=== PATIENT | male | born 1950 | race Caucasian/White ===

== ENCOUNTER 2018-10-08 17:01 | Observation (INO) | payer MEDICARE ==
[~2018-10-08] VITALS: Ht 177.8 cm; Wt 97.7 kg
[~2018-10-08 17:01] MED LIST: ANUSOL-HC25 MG RE; CIPRO250 MG OR; LORTAB5 OR
--- NOTE | 2018-10-08 17:01 | NUR ---
PATIENT ARRIVES TO ED VIA EMS. REPORTS [facility] GAVE PATIENT 324 MG OF ASPIRIN AND 1 SL NITRO. PATIENT DENIES ANY CHEST PAIN OR SOB.
--- NOTE | 2018-10-08 17:28 | NUR ---
PT STATES THAT HE FELT HIS HEART RACING YESTERDAY, STATES TAHT HE WENT TO THE DR TODAY TO BE CHECKED OUT AND WAS SENT TO THE ER. STAETS HAVING NO C/P,SOB. N/V OR WEAKNESS. PT IS AOX4.\ PT WAS GIVEN 0.4 MG NITRO, 324MG ASA PRIOR TO EMS ARRIVAL
[2018-10-08 17:49] LABS: HEMATOCRIT 45.4 % (39.0-50.0); HEMOGLOBIN 15.2 g/dl (14.0-18.0); IMMATURE GRANULOCYTES 0.2 % (0.0-5.0); MEAN CELL VOLUME 91.5 fL CALC (80.0-100.0); MEAN CORPUSCULAR HGB 30.6 pG CALC (26.0-32.0); MEAN CORPUSCULAR HGB CONC 33.5 g/L CALC (32.0-36.0); NEUT# 5.82 thou/uL (1.82-7.42); RED BLOOD COUNT 4.96 mill/uL (4.70-6.10); RED CELL DISTRI WIDTH 12.8 % (11.5-15.5)
[2018-10-08 18:00] LABS: ALBUMIN 4.4 g/dL (3.2-5.0); ALKALINE PHOSPHATASE 90 u/l (38-126); ANION GAP 16 (6-22 (CALC)); BILIRUBIN, TOTAL 0.5 mg/dL (0.0-1.4); BUN 15 mg/dL (8-23); BUN/CREATININE RATIO 14 (12-20 (CALC)); CARBON DIOXIDE 22 mmol/l (22-30); CHLORIDE 109 mmol/l (95-108); CREATININE 1.1 mg/dL (0.7-1.3); GFR > 60 ML/MIN (>=60 (CALC)); GFR FOR AFR.AMER. > 60 ML/MIN (>=60 (CALC)); POTASSIUM 4.4 mmol/l (3.5-5.1); SGOT/AST 30 u/l (19-48); SODIUM 143 mmol/l (137-146); TOTAL PROTEIN 7.6 g/dL (6.3-8.2)
--- NOTE | 2018-10-08 18:28 | NUR ---
PT AMBULATED TO RESTROOM WITH STEADY GAIT, NO COMPLAINTS AT THIS TIME.
[2018-10-08 18:30] LABS: TSH, 3RD GENERATION 0.97 uIU/mL (0.47 - 4.68)
--- NOTE | 2018-10-08 18:45 | NUR ---
MD AT BEDSIDE TO DISCUSS FINDINGS AND ADMISSION
--- NOTE | 2018-10-08 19:11 | NUR ---
PT INFORMED OF WAIT TIME FOR ADMISSION
--- NOTE | 2018-10-08 20:11 | NUR ---
PT RESTING ON STRETCHER, NO COMPLAINTS STATED AT THIS TIME
--- NOTE | 2018-10-08 21:30 | NUR ---
PT RESTING ON STRETCHER AWAITING ADMISSION
--- NOTE | 2018-10-08 21:34 | NUR ---
REPORT CALLED TO LISS SALINAS- ACCPETED PT
[2018-10-08 21:44] VITALS: BP 161/89
--- NOTE | 2018-10-08 21:45 | NUR ---
PT ARRIVED TO THE FLOOR VIA STRETCHER ACCOMPANIED BY ED NURSE. NO S/O DISTRESS NOTED. PT DENIES SOB, DIZZINESS,WEAKNESS,PAIN,N/V,SWEATS OR ANY OTHER SYMPTOMS. PT LOCX4. PT ORIENTED TO ROOM,LIGHTS,CALL SYSTEM. URINAL AT BESIDE. PT STATED THAT HE DID NOT NEED "FALL RISK" BAND BECAUSE HE HAS NOT BEEN DIZZY, WEAK OR FALLEN AT ANY POINT. SKIN IS INTACT, NEURO'S INTACT, LUNG SOUNDS CLEAR, HR REG. PT REPORTS EARLIER STOOL THIS DAY NORMAL. PT ENCOURAGED TO CALL IF ANY NEEDS ARISE. CALL LIGHT IS W/IN REACH. PT OFFERED SNACK/DRINK, DENIED NEED/PO WATER PROVIDED.
--- NOTE | 2018-10-08 21:49 | NUR ---
Admission Note Report Given to: LISS SALINAS Transported by: Wheelchair X Stretcher Transported with: X Nurse Transporter X Patent IV O2 X [employer] Ii Assembler [place]SP[place] [facility] [place]
[2018-10-08 23:50] VITALS: BP 135/78
--- NOTE | 2018-10-09 02:15 | NUR ---
PT SLEEPING NO S/O DISTRESS. CALL LIGHT AT SIDE.
[2018-10-09 03:38] VITALS: BP 122/73
--- NOTE | 2018-10-09 05:00 | NUR ---
PT SLEEPING NO S/O DISTRESS NOTED AT THIS TIME. CALL LIGHT AT BEDSIDE.
[2018-10-09 06:32] LABS: CHOLESTEROL HDL RATIO 5.7 (<4.4 (CALC))
--- NOTE | 2018-10-09 07:00 | NUR ---
PT REPORT RECIEVED FROM BRAD ALONSO. PT RESTING IN BED. NO S/S OF DISTRESS. CALL LIGHT IN REACH. WILL CONITNUE TO MONITOR.
[2018-10-09 08:03] VITALS: BP 148/76
--- NOTE | 2018-10-09 08:03 | NUR ---
PT A/O X3. SPEECH IS CLEAR. NO C/O CHEST PAIN AT THIS TIME. RESP EVEN AND UNLABORED. LUNG SOUNDS CLEAR. TELE IN PLACE. BOWEL SOUNDS ACTIVE X4. STRONG RADIAL AND PEDAL PULSES. #18 [facility] SITE SL. FLUSHED AND PATENT. SITE APPEARS HEALTHY. SKIN INTACT. PT DENIES ANY NEEDS AT THIS TIME. POC DISCUSSED. SAFETY PRECAUTIONS IN PLACE. CALL LIGHT IN REACH. WILL CONTINUE TO MONITOR.
[2018-10-09 11:30] VITALS: BP 144/77
--- NOTE | 2018-10-09 12:24 | NUR ---
PT RESTING IN BED. NO C/O PAIN OR NEEDS. TELE IN PLACE. CALL LIGHT IN REACH. WILL CONTINUE TO MONITOR.
--- NOTE | 2018-10-09 13:10 | NUR ---
DR. FENG IN TO SEE PT
[2018-10-09] MEDS ORDERED: METOPROLOL50 M1 PO (14:36)
--- NOTE | 2018-10-09 15:00 | NUR ---
D/C INSTRUCTIONS DISCUSSSED W/ PT. PT STATES UNDERSTANDING. TELE REMOVED. IV REMOVED. CATHETER INTACT. PT GETTING DRESSED AT THIS TIME.
--- NOTE | 2018-10-09 15:10 | NUR ---
Discharge instructions given. Patient verbalizes understanding of same. Discharged in stable condition via Ambulatory to Home with family. All belongings sent with pt.
== END 2018-10-09 15:11 | disposition home or self-care (01) ==
LOC: ED 17:01 → ED-I 18:30 → ED 19:01 → MS2 19:02
PROVIDERS: Emergency Medicine; ADMIT Internal Medicine; ATTEND Internal Medicine
DX: I10 Essential (primary) hypertension (principal); I49.3 Ventricular premature depolarization; R53.1 Weakness
CPT/HCPCS: G0378

== ENCOUNTER 2022-04-21 07:25 | Day surgery (SDC) | payer MEDICARE ==
[~2022-04-21] VITALS: Ht 177.8 cm; Wt 86.2 kg
[~2022-04-21 07:25] MED LIST changes: +LIPITOR20 M1 PO; +METFORMIN HCL500 M1 PO; +METOPROLOL SUCC50 MG PO; +METOPROLOL50 M1 PO
[2022-04-21 10:52] VITALS: BP 156/86
== END 2022-04-21 10:53 | disposition home or self-care (01) ==
LOC: ENDO 07:25 → ORM 09:40 → ENDO 10:53
PROVIDERS: ATTEND Surgery
PROC: 0DBN8ZX Excision of Sigmoid Colon, Via Natural or Artificial Opening Endoscopic, Diagnostic (ICD-10-PCS; principal; 2022-04-21)
DX: K57.31 Diverticulosis of large intestine without perforation or abscess with bleeding (principal); K63.89 Other specified diseases of intestine; K50.10 Crohn's disease of large intestine without complications; K64.8 Other hemorrhoids; I10 Essential (primary) hypertension; E11.9 Type 2 diabetes mellitus without complications; Z79.84 Long term (current) use of oral hypoglycemic drugs

== ENCOUNTER 2023-09-11 12:46 | Observation (INO) | payer MEDICARE ==
[~2023-09-11] VITALS: Ht 177.8 cm; Wt 87.8 kg
[2023-09-11] VITALS (13 sets, daily range): BP systolic 95–127; BP diastolic 55–75
[~2023-09-11 12:46] MED LIST changes: +MEDDOSEPAK PO
[2023-09-11 13:42] LABS: BASO% 0.1 % (0-3); EOS% 0.6 % (0-8); HEMATOCRIT 45.2 % (39.0-50.0); IMMATURE GRANULOCYTES 0.2 % (0.0-5.0); LYMPH% 11.6 % (15-41); MEAN CELL VOLUME 89.2 fL CALC (80.0-100.0); MEAN CORPUSCULAR HGB 29.6 pG CALC (26.0-32.0); MEAN CORPUSCULAR HGB CONC 33.2 g/dL CAL (32.0-36.0); MONO% 9.5 % (2-13); NEUT# 11.52 thou/uL (1.82-7.42); RED BLOOD COUNT 5.07 mill/uL (4.70-6.10); RED CELL DISTRI WIDTH 13.6 % (11.5-15.5)
[2023-09-11 13:45] LABS: ALBUMIN 3.9 g/dL (3.2-5.0); BILIRUBIN, TOTAL 0.6 mg/dL (0.2-1.3); POTASSIUM 3.9 mmol/l (3.5-5.1); TOTAL PROTEIN 7.4 g/dL (6.3-8.2)
[2023-09-11] MEDS ORDERED: SODIUM CHLORIDE 0.9% 1,000 ML IV ONE (13:45)
[2023-09-11 13:46] LABS: INTERNATIONAL NORMALIZED RATIO 1.1 RATIO (0.7-1.3); PROTHROMBIN TIME 10.8 SECONDS (9.0-12.5)
[2023-09-11 13:47] LABS: CREATININE 2.1 mg/dL (0.7-1.3)
[2023-09-11] MEDS ORDERED: MAGNESIUM HYDROXIDE 30 ML UDC PO PRN (15:40)
[2023-09-11] MEDS ORDERED: ACETAMINOPHEN 325 MG/TAB PO PRN (15:40)
[2023-09-11] MEDS ORDERED: SODIUM CHLORIDE 0.9% 1,000 ML IV PRN (15:45)
[2023-09-11] MEDS ORDERED: MORPHINE SULFATE 4 MG/ML VIAL IV PRN (16:30)
[2023-09-11] MEDS ORDERED: ONDANSETRON HCl 4 MG/2 ML SDV IV PRN (16:30)
[2023-09-11] MEDS ORDERED: hydrALAZINE HCL 20 MG/ML VIAL(1 ML) IV PRN (16:30)
[2023-09-11] MEDS ORDERED: INSULIN LISPRO 100 UNITS/ML ML SC SCH (17:00)
[2023-09-11] MEDS ORDERED: ATORVASTATIN CALCIUM 20 MG/TAB PO SCH (21:00)
[2023-09-12 05:15] VITALS: BP 106/60
[2023-09-12 05:36] LABS: BASO% 0.2 % (0-3); EOS% 1.7 % (0-8); IMMATURE GRANULOCYTES 0.3 % (0.0-5.0); LYMPH% 12.5 % (15-41); MEAN CELL VOLUME 89.3 fL CALC (80.0-100.0); MEAN CORPUSCULAR HGB 30.5 pG CALC (26.0-32.0); MEAN CORPUSCULAR HGB CONC 34.2 g/dL CAL (32.0-36.0); MONO% 10.8 % (2-13); NEUT# 6.97 thou/uL (1.82-7.42); NEUT% 74.5 % (42-76); RED BLOOD COUNT 4.19 mill/uL (4.70-6.10); RED CELL DISTRI WIDTH 13.7 % (11.5-15.5)
[2023-09-12 05:45] LABS: HEMATOCRIT 37.4 % (39.0-50.0); HEMOGLOBIN 12.8 g/dl (14.0-18.0)
[2023-09-12 05:54] LABS: BILIRUBIN, TOTAL 0.5 mg/dL (0.2-1.3); CHOLESTEROL HDL RATIO 3.1 (<4.4 (CALC)); CREATININE 1.5 mg/dL (0.7-1.3); MAGNESIUM 1.8 mg/dL (1.6-2.3); POTASSIUM 3.7 mmol/l (3.5-5.1)
[2023-09-12 06:11] LABS: ALBUMIN 2.9 g/dL (3.2-5.0); TOTAL PROTEIN 5.4 g/dL (6.3-8.2)
[2023-09-12 06:47] VITALS: BP 101/56
[2023-09-12] MEDS ORDERED: Pantoprazole Sodium 40 MG VIAL (Protonix) IV SCH (09:30)
[2023-09-12 10:00] VITALS: BP 99/56
[2023-09-12 14:51] VITALS: BP 107/56
[2023-09-12 18:54] VITALS: BP 113/69
[2023-09-13 03:58] VITALS: BP 105/51
[2023-09-13 06:17] LABS: BASO% 0.1 % (0-3); EOS% 1.7 % (0-8); HEMATOCRIT 34.5 % (39.0-50.0); HEMOGLOBIN 11.9 g/dl (14.0-18.0); IMMATURE GRANULOCYTES 0.1 % (0.0-5.0); LYMPH% 12.9 % (15-41); MEAN CELL VOLUME 89.1 fL CALC (80.0-100.0); MEAN CORPUSCULAR HGB 30.7 pG CALC (26.0-32.0); MEAN CORPUSCULAR HGB CONC 34.5 g/dL CAL (32.0-36.0); NEUT# 5.98 thou/uL (1.82-7.42); NEUT% 72.2 % (42-76); RED BLOOD COUNT 3.87 mill/uL (4.70-6.10); RED CELL DISTRI WIDTH 13.6 % (11.5-15.5)
[2023-09-13 06:30] LABS: ALBUMIN 2.6 g/dL (3.2-5.0); BILIRUBIN, TOTAL 0.4 mg/dL (0.2-1.3); CREATININE 1.4 mg/dL (0.7-1.3); MAGNESIUM 1.8 mg/dL (1.6-2.3); POTASSIUM 3.5 mmol/l (3.5-5.1)
[2023-09-13 07:20] VITALS: BP 99/52
[2023-09-13 08:10] VITALS: BP 99/52
[2023-09-13 11:16] VITALS: BP 111/71
[2023-09-13] MEDS ORDERED: metroNIDAZOLE 500 MG/TAB PO SCH (15:00)
[2023-09-13 16:10] VITALS: BP 104/50
[2023-09-13 19:23] VITALS: BP 117/47
[2023-09-13] MEDS ORDERED: FLUTICASONE PROPIONATE (Nasal) 50MCG/SPRAY INH SCH (20:30)
[2023-09-13] MEDS ORDERED: CIPROFLOXACIN HCL 500 MG/TAB PO SCH (21:00)
[2023-09-14 04:33] VITALS: BP 104/46
[2023-09-14 06:29] LABS: BASO% 0.1 % (0-3); EOS% 3.5 % (0-8); HEMATOCRIT 34.9 % (39.0-50.0); HEMOGLOBIN 11.9 g/dl (14.0-18.0); IMMATURE GRANULOCYTES 0.3 % (0.0-5.0); LYMPH% 19.6 % (15-41); MEAN CELL VOLUME 90.2 fL CALC (80.0-100.0); MEAN CORPUSCULAR HGB 30.7 pG CALC (26.0-32.0); MEAN CORPUSCULAR HGB CONC 34.1 g/dL CAL (32.0-36.0); MONO% 11.4 % (2-13); NEUT# 4.44 thou/uL (1.82-7.42); NEUT% 65.1 % (42-76); RED BLOOD COUNT 3.87 mill/uL (4.70-6.10); RED CELL DISTRI WIDTH 13.7 % (11.5-15.5)
[2023-09-14 06:48] VITALS: BP 106/56
[2023-09-14 06:49] LABS: ALBUMIN 2.6 g/dL (3.2-5.0); ALKALINE PHOSPHATASE 63 u/l (38-126); ANION GAP 8 (6-22 (CALC)); BILIRUBIN, TOTAL 0.4 mg/dL (0.2-1.3); BUN 13 mg/dL (8-23); BUN/CREATININE RATIO 11 (12-20 (CALC)); CARBON DIOXIDE 21 mmol/l (22-30); CHLORIDE 116 mmol/l (95-108); CREATININE 1.3 mg/dL (0.7-1.3); GFR FOR AFR.AMER. > 60 ML/MIN (>=60 (CALC)); GFR OTHER RACES 54 ML/MIN (>=60 (CALC)); MAGNESIUM 1.8 mg/dL (1.6-2.3); POTASSIUM 3.8 mmol/l (3.5-5.1); SGOT/AST 20 u/l (19-48); SODIUM 141 mmol/l (137-146); TOTAL PROTEIN 5.2 g/dL (6.3-8.2)
[2023-09-14] MEDS ORDERED: LISINOPRIL5 MG PO (12:29)
[2023-09-14] MEDS ORDERED: LISINOPRIL10 MG PO (12:29)
[2023-09-14] MEDS ORDERED: CIPROFLOXACN500 MG PO (12:30)
[2023-09-14] MEDS ORDERED: METRONIDAZOLE500 MG PO (12:30)
== END 2023-09-14 13:53 | disposition home or self-care (01) ==
LOC: ED 12:46 → ED-I 15:09 → ED 15:30 → ED-I 15:31 → MS2 16:34
PROVIDERS: Family Medicine; Nurse Practitioner Family; ADMIT Student in an Organized Health Care Education/Training Program; ATTEND Student in an Organized Health Care Education/Training Program
DX: K55.039 Acute (reversible) ischemia of large intestine, extent unspecified (principal); K92.1 Melena; N17.9 Acute kidney failure, unspecified; I49.3 Ventricular premature depolarization; I10 Essential (primary) hypertension; E11.9 Type 2 diabetes mellitus without complications; Z87.442 Personal history of urinary calculi; Z79.84 Long term (current) use of oral hypoglycemic drugs
CPT/HCPCS: S0164

== ENCOUNTER 2024-05-12 13:26 | Inpatient (IN) | payer MEDICARE ==
[~2024-05-12] VITALS: Ht 177.8 cm; Wt 85.6 kg
[2024-05-12] VITALS (19 sets, daily range): BP systolic 95–125; BP diastolic 45–68
[~2024-05-12 13:26] MED LIST changes: +B-12100 MCG PO; +CIPROFLOXACN500 MG PO; +LISINOPRIL10 MG PO; +LISINOPRIL5 MG PO; +METRONIDAZOLE500 MG PO; +MULTI VITAMIN1 TAB PO; +PREDNISONE10 MG PO; +PROTONIX40 M2 PO; +VITAMIN D PO; +[UNRECOGNIZED DRUG - OTHER]
[2024-05-12 13:57] LABS: BASO% 0.2 % (0-3); EOS% 0.5 % (0-8); HEMATOCRIT 41.9 % (39.0-50.0); HEMOGLOBIN 14.3 g/dl (14.0-18.0); IMMATURE GRANULOCYTES 0.4 % (0.0-5.0); LYMPH% 7.8 % (15-41); MEAN CELL VOLUME 89.5 fL CALC (80.0-100.0); MEAN CORPUSCULAR HGB 30.6 pG CALC (26.0-32.0); MEAN CORPUSCULAR HGB CONC 34.1 g/dL CAL (32.0-36.0); MONO% 7.9 % (2-13); NEUT# 12.4 thou/uL (1.82-7.42); NEUT% 83.2 % (42-76); RED BLOOD COUNT 4.68 mill/uL (4.70-6.10); RED CELL DISTRI WIDTH 13.2 % (11.5-15.5)
[2024-05-12] MEDS ORDERED: SODIUM CHLORIDE 0.9% 1,000 ML IV ONE (14:00)
[2024-05-12 14:11] LABS: CREATININE 2.2 mg/dL (0.7-1.3); POTASSIUM 4.3 mmol/l (3.5-5.1); TOTAL PROTEIN 7.3 g/dL (6.3-8.2)
[2024-05-12 14:16] LABS: ALBUMIN 4.2 g/dL (3.2-5.0); BILIRUBIN, TOTAL 0.6 mg/dL (0.2-1.3)
[2024-05-12] MEDS ORDERED: LANTUS SOL100 UNIT/M SC (15:53)
[2024-05-12] MEDS ORDERED: PIPERACILLIN Sodium-Tazobactam 3.375 GM in SODIUM CHLORIDE 0.9% 100 ML IV ONE (16:15)
[2024-05-12] MEDS ORDERED: methylPREDNISolone Sod Succ 40 MG/ML SDV IV SCH (16:24)
[2024-05-12] MEDS ORDERED: MAGNESIUM HYDROXIDE 30 ML UDC PO PRN (16:25)
[2024-05-12] MEDS ORDERED: SODIUM CHLORIDE 0.9% 1,000 ML IV PRN (16:25)
[2024-05-12] MEDS ORDERED: ACETAMINOPHEN 325 MG/TAB PO PRN (16:25)
[2024-05-12] MEDS ORDERED: MORPHINE SULFATE 4 MG/ML VIAL IV PRN (16:30)
[2024-05-12] MEDS ORDERED: ONDANSETRON HCl 4 MG/2 ML SDV IV PRN (16:30)
[2024-05-12] MEDS ORDERED: Pantoprazole Sodium 40 MG VIAL (Protonix) IV SCH (16:35)
[2024-05-12] MEDS ORDERED: INSULIN LISPRO 100 UNITS/ML ML SC SCH (17:00)
[2024-05-12] MEDS ORDERED: Ciprofloxacin 200 mg Premix 200 ML IV SCH (18:00)
[2024-05-13] VITALS (9 sets, daily range): BP systolic 85–110; BP diastolic 43–62
[2024-05-13 04:56] LABS: IMMATURE GRANULOCYTES 0.2 % (0.0-5.0); LYMPH% 9.7 % (15-41); MEAN CORPUSCULAR HGB 30.6 pG CALC (26.0-32.0); MEAN CORPUSCULAR HGB CONC 32.9 g/dL CAL (32.0-36.0); MONO% 3.5 % (2-13); NEUT# 8.43 thou/uL (1.82-7.42); NEUT% 86.6 % (42-76); RED BLOOD COUNT 3.86 mill/uL (4.70-6.10); RED CELL DISTRI WIDTH 13.4 % (11.5-15.5)
[2024-05-13 05:03] LABS: HEMATOCRIT 35.9 % (39.0-50.0); HEMOGLOBIN 11.8 g/dl (14.0-18.0)
[2024-05-13 05:15] LABS: BILIRUBIN, TOTAL 0.4 mg/dL (0.2-1.3); C-REACTIVE PROTEIN 2.9 mg/dL (0-0.9); CHOLESTEROL HDL RATIO 4.5 (<4.4 (CALC)); CREATININE 1.9 mg/dL (0.7-1.3); MAGNESIUM 2.1 mg/dL (1.6-2.3); POTASSIUM 4.6 mmol/l (3.5-5.1)
[2024-05-13 05:18] LABS: ALBUMIN 3.2 g/dL (3.2-5.0); TOTAL PROTEIN 5.8 g/dL (6.3-8.2)
[2024-05-13] MEDS ORDERED: INSULIN DETEMIR 100 UNITS/ML SC SCH (09:00)
[2024-05-14] VITALS (9 sets, daily range): BP systolic 95–118; BP diastolic 49–63
[2024-05-14 04:21] LABS: ALBUMIN 2.9 g/dL (3.2-5.0); CREATININE 1.3 mg/dL (0.7-1.3); MAGNESIUM 2.1 mg/dL (1.6-2.3); POTASSIUM 4.5 mmol/l (3.5-5.1); TOTAL PROTEIN 5.5 g/dL (6.3-8.2)
[2024-05-14 04:29] LABS: BILIRUBIN, TOTAL 0.2 mg/dL (0.2-1.3)
[2024-05-14 04:32] LABS: HEMATOCRIT 33.8 % (39.0-50.0); IMMATURE GRANULOCYTES 0.8 % (0.0-5.0); LYMPH% 10.1 % (15-41); MEAN CELL VOLUME 92.1 fL CALC (80.0-100.0); MEAN CORPUSCULAR HGB CONC 32.5 g/dL CAL (32.0-36.0); MONO% 6.8 % (2-13); NEUT# 7.31 thou/uL (1.82-7.42); NEUT% 82.3 % (42-76); RED BLOOD COUNT 3.67 mill/uL (4.70-6.10); RED CELL DISTRI WIDTH 13.6 % (11.5-15.5)
[2024-05-14] MEDS ORDERED: CIPROFLOXACIN HCL 500 MG/TAB PO SCH (22:47)
[2024-05-14] MEDS ORDERED: metroNIDAZOLE 500 MG/TAB PO SCH (22:48)
[2024-05-14] MEDS ORDERED: PANTOPRAZOLE SODIUM Sesquihydr 40 MG/TAB PO SCH (22:49)
[2024-05-14] MEDS ORDERED: predniSONE 20 MG/TAB PO SCH (22:50)
[2024-05-15] VITALS (9 sets, daily range): BP systolic 104–138; BP diastolic 47–77
[2024-05-15 05:01] LABS: EOS% 0.1 % (0-8); HEMATOCRIT 34.6 % (39.0-50.0); HEMOGLOBIN 11.7 g/dl (14.0-18.0); IMMATURE GRANULOCYTES 0.9 % (0.0-5.0); LYMPH% 10.3 % (15-41); MEAN CELL VOLUME 91.8 fL CALC (80.0-100.0); MEAN CORPUSCULAR HGB CONC 33.8 g/dL CAL (32.0-36.0); MONO% 7.5 % (2-13); NEUT# 7.48 thou/uL (1.82-7.42); NEUT% 81.2 % (42-76); RED BLOOD COUNT 3.77 mill/uL (4.70-6.10); RED CELL DISTRI WIDTH 13.8 % (11.5-15.5)
[2024-05-15 05:19] LABS: CREATININE 1.2 mg/dL (0.7-1.3); POTASSIUM 4.7 mmol/l (3.5-5.1); TOTAL PROTEIN 5.6 g/dL (6.3-8.2)
[2024-05-15 05:22] LABS: BILIRUBIN, TOTAL 0.3 mg/dL (0.2-1.3)
[2024-05-16] VITALS (9 sets, daily range): BP systolic 93–128; BP diastolic 45–71
[2024-05-16 05:58] LABS: HEMOGLOBIN 11.6 g/dl (14.0-18.0); MEAN CELL VOLUME 91.6 fL CALC (80.0-100.0); MEAN CORPUSCULAR HGB 31.3 pG CALC (26.0-32.0); MEAN CORPUSCULAR HGB CONC 34.1 g/dL CAL (32.0-36.0); RED BLOOD COUNT 3.71 mill/uL (4.70-6.10); RED CELL DISTRI WIDTH 13.6 % (11.5-15.5)
[2024-05-16 06:11] LABS: ALBUMIN 2.9 g/dL (3.2-5.0); BILIRUBIN, TOTAL 0.4 mg/dL (0.2-1.3); CREATININE 1.2 mg/dL (0.7-1.3); MAGNESIUM 2.1 mg/dL (1.6-2.3); POTASSIUM 4.6 mmol/l (3.5-5.1); TOTAL PROTEIN 5.5 g/dL (6.3-8.2)
[2024-05-17] VITALS (7 sets, daily range): BP systolic 91–117; BP diastolic 32–55
[2024-05-17] MEDS ORDERED: DIATRIZOATE MEGLUMINE & SODIUM 30 ML/BTL BTL PO SCH (13:45)
[2024-05-18] VITALS (7 sets, daily range): BP systolic 104–137; BP diastolic 43–77
[2024-05-18 05:15] LABS: HEMOGLOBIN 12.1 g/dl (14.0-18.0); MEAN CELL VOLUME 92.1 fL CALC (80.0-100.0); MEAN CORPUSCULAR HGB 30.9 pG CALC (26.0-32.0); MEAN CORPUSCULAR HGB CONC 33.6 g/dL CAL (32.0-36.0); RED BLOOD COUNT 3.91 mill/uL (4.70-6.10); RED CELL DISTRI WIDTH 13.5 % (11.5-15.5)
[2024-05-18 05:54] LABS: ALBUMIN 2.7 g/dL (3.2-5.0); BILIRUBIN, TOTAL 0.4 mg/dL (0.2-1.3); CREATININE 1.1 mg/dL (0.7-1.3); MAGNESIUM 2.1 mg/dL (1.6-2.3); POTASSIUM 3.9 mmol/l (3.5-5.1); TOTAL PROTEIN 5.1 g/dL (6.3-8.2)
[2024-05-18] MEDS ORDERED: predniSONE 10 MG/TAB PO SCH (09:00)
[2024-05-18] MEDS ORDERED: PIPERACILLIN Sodium-Tazobactam 3.375 GM in SODIUM CHLORIDE 0.9% 100 ML IV SCH (12:00)
[2024-05-18 21:35] LABS: URINE BILIRUBIN - DIPSTICK Negative (NEGATIVE); URINE BLOOD DIPSTICK Negative (NEGATIVE); URINE GLUCOSE - DIPSTICK 100 mg/dL (NEGATIVE); URINE KETONE Negative (NEGATIVE); URINE LEUK ESTERASE Negative (NEGATIVE); URINE NITRITE - DIPSTICK Negative (Negative); URINE PROTEIN - DIPSTICK Negative (NEG-TRACE); URINE SPECIFIC GRAVITY 1.015; URINE UROBILINOGEN - DIPSTICK 0.2 E.U./dL (0.2)
[2024-05-18 21:36] LABS: URINE COLOR Yellow
[2024-05-19 04:16] VITALS: BP 124/56
[2024-05-19 07:37] VITALS: BP 118/64
[2024-05-19 10:40] VITALS: BP 103/62
[2024-05-19 14:45] VITALS: BP 114/63
[2024-05-19 18:45] VITALS: BP 106/45
[2024-05-19 23:32] VITALS: BP 127/57
[2024-05-20 04:39] VITALS: BP 111/65
[2024-05-20 07:47] VITALS: BP 109/62
[2024-05-20] MEDS ORDERED: CIPROFLOXACN500 MG PO (09:13)
[2024-05-20] MEDS ORDERED: METRONIDAZOLE500 MG PO (09:13)
[2024-05-20 11:30] VITALS: BP 113/66
== END 2024-05-20 12:35 | disposition home or self-care (01) | DRG 378 ==
LOC: ED 13:26 → ED-I 16:00 → ED 16:16 → MS2 16:17
PROVIDERS: Family Medicine; Internal Medicine; Nurse Practitioner Family; ADMIT Student in an Organized Health Care Education/Training Program; ATTEND Student in an Organized Health Care Education/Training Program
DX: K57.33 Diverticulitis of large intestine without perforation or abscess with bleeding (principal); N17.9 Acute kidney failure, unspecified; I12.9 Hypertensive chronic kidney disease with stage 1 through stage 4 chronic kidney disease, or unspecified chronic kidney disease; E11.22 Type 2 diabetes mellitus with diabetic chronic kidney disease; N18.30 Chronic kidney disease, stage 3 unspecified; Z79.4 Long term (current) use of insulin; Z79.84 Long term (current) use of oral hypoglycemic drugs
CPT/HCPCS: G0328; J1815; J2470; Q9967